=== PATIENT | male | born 1995 | race Caucasian/White ===

== ENCOUNTER 2018-04-30 23:10 | Emergency (ER) | payer MEDICAID, OTHER ==
[~2018-04-30] VITALS: Ht 182.9 cm; Wt 99.8 kg
[2018-05-01] MEDS ORDERED: HYDROcodone-ACET 10/325MG TAB PO ONE (01:15)
[2018-05-01 01:58] VITALS: BP 160/41
== END 2018-05-01 02:09 | disposition home or self-care (01) ==
LOC: ER 23:19
DX: S82.61XA Displaced fracture of lateral malleolus of right fibula, initial encounter for closed fracture (principal); S92.354A Nondisplaced fracture of fifth metatarsal bone, right foot, initial encounter for closed fracture; X58.XXXA Exposure to other specified factors, initial encounter; Y93.67 Activity, basketball; Y99.8 Other external cause status; Y92.39 Other specified sports and athletic area as the place of occurrence of the external cause
CPT/HCPCS: 29515; 73610; 73630